=== PATIENT | female | born 1950 | race Caucasian/White ===

== ENCOUNTER 2019-03-20 17:05 | Emergency (ER) | payer OTHER ==
[2019-03-20 17:16] VITALS: BP 127/60
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
== END 2019-03-20 17:33 | disposition home or self-care (01) ==
LOC: CED 17:05
DX: S06.0X0A Concussion without loss of consciousness, initial encounter (principal); V48.9XXA Unspecified car occupant injured in noncollision transport accident in traffic accident, initial encounter; Y92.410 Unspecified street and highway as the place of occurrence of the external cause
CPT/HCPCS: 99283-ER